=== PATIENT | female | born 1965 | race Caucasian/White ===

== ENCOUNTER 2019-07-08 01:38 | Inpatient (IN) ==
[2019-07-08] MEDS ORDERED: Ondansetron 4 MG/2 ML VIAL IVP ONE (01:46)
[2019-07-08] MEDS ORDERED: 0.9 % Sodium Chloride 1,000 ML IVC ONE ×2 (01:46→03:27)
[2019-07-08] MEDS ORDERED: Ketorolac 30 MG/ML VIAL IVP ONE (01:46)
[2019-07-08 02:35] LABS: VBG HCO3 25 mEq/L (21-27); VBG PCO2 59 mmHg (41-51); VBG PH 7.23 pH Units (7.32-7.42); VBG PO2 33 mmHg (25-50)
[2019-07-08 02:36] LABS: Basophils % 0.2 %; Eosinophils # 0.1 K/mcL (0.0-0.6); Eosinophils % 0.3 %; Hematocrit 38.6 % (35.3-44.9); Hemoglobin 12.6 g/dL (11.5-15.4); Immature Granulocytes % 0.4 % (0-4); Lymphocytes # 2.1 K/mcL (0.6-4.6); Lymphocytes % 10.2 %; Mean Corpuscular HGB Conc 32.6 g/dL (31.6-35.5); Mean Corpuscular Hemoglobin 26.2 pg (28.0-33.3); Mean Corpuscular Volume 80.2 fL (83.0-100.0); Mean Platelet Volume 9.2 fL (9.4-12.4); Monocytes # 0.7 K/mcL (0.0-1.3); Monocytes % 3.5 %; Neutrophils # 17.4 K/mcL (1.6-8.9); Platelet Count 380 K/mcL (140-400); Red Blood Count 4.81 M/mcL (3.82-4.97); Red Cell Distribution Width 13.2 % (11.5-14.5); Segmented Neutrophils % 85.4 %; White Blood Count 20.4 K/mcL (4.3-11.1)
[2019-07-08 02:55] LABS: Albumin 3.5 g/dL (3.5-5.7); Albumin/Globulin Ratio 0.9 (1.1-2.2); Bilirubin,Indirect 0.3 mg/dL (0.0-1.0); Bilirubin,Total 0.3 mg/dL (0.3-1.0); Globulin 3.7 g/dL (2.4-3.5); Total Protein 7.2 g/dL (6.4-8.9)
[2019-07-08 03:16] LABS: Calcium 9.2 mg/dL (8.6-10.3); Potassium 5.5 mEq/L (3.5-5.1)
[2019-07-08] MEDS ORDERED: *HR* Dextrose 50 % in Water (Vial) 50 ML VIAL IVP PRN ×3 (03:33→09:20)
[2019-07-08] MEDS ORDERED: Insulin Human Regular 100 UNIT in 0.9 % Sodium Chloride 100 ML IVC SCH ×2 (03:45→06:03)
[2019-07-08] MEDS ORDERED: 0.9 % Sodium Chloride 1,000 ML IVC SCH ×2 (04:45→06:03)
[2019-07-08 05:45] LABS: Bilirubin,Urine Negative (Negative); Blood,Urine Negative (Negative); Clarity,Urine Clear (Clear); Color,Urine Light Yellow (Yellow); Glucose,Urine (UA) 500 mg/dL (Normal); Ketones,Urine Negative (Negative); Leukocyte Esterase,Urine Negative (Negative); Nitrite,Urine Negative (Negative); Protein,Urine Negative (Neg-Trace); Specific Gravity,Urine <= 1.005 (1.010-1.025); Urobilinogen,Urine Normal (Normal)
[2019-07-08] MEDS ORDERED: Ondansetron 4 MG/2 ML VIAL IVP PRN (06:03)
[2019-07-08] MEDS ORDERED: Naloxone 0.4 MG/ML INJ IVP PRN (06:03)
[2019-07-08] MEDS ORDERED: Tiotropium 18 MCG inhalation IH SCH (07:00)
[2019-07-08 08:28] LABS: Calcium 9.4 mg/dL (8.6-10.3); Potassium 4.1 mEq/L (3.5-5.1)
[2019-07-08] MEDS: Gabapentin 400 MG CAPSULE PO SCH ×3 (08:40→20:21)
[2019-07-08] MEDS: Loratadine 10 MG TABLET PO SCH (08:40)
[2019-07-08] MEDS: Lisinopril 20 MG TABLET PO SCH (08:40)
[2019-07-08] MEDS: BuPROPion XL (24 HR) 150 MG TABLET PO SCH (08:41)
[2019-07-08] MEDS ORDERED: Budesonide/Formoterol 80/4.5 1 PUFF INH IH SCH (09:00)
[2019-07-08] MEDS: Tiotropium 18 MCG inhalation IH SCH (09:18)
[2019-07-08] MEDS: Budesonide/Formoterol 80/4.5 1 PUFF INH IH SCH (09:18)
[2019-07-08] MEDS ORDERED: D5% in Water 1,000 ML IVC PRN (09:20)
[2019-07-08] MEDS ORDERED: Dextrose Gel 15 GM/37.5 ML TUBE PO PRN ×2 (09:20)
[2019-07-08] MEDS: 0.9 % Sodium Chloride 1,000 ML IVC SCH ×2 (12:24→18:39)
[2019-07-08] MEDS: Insulin LISPRO 300 UNITS/3 ML VIAL SQ SCH ×2 (12:27→18:12)
[2019-07-08 22:06] LABS: Estimated Average Glucose 410 mg/dl
[2019-07-09] MEDS: Insulin LISPRO 300 UNITS/3 ML VIAL SQ SCH ×6 (00:20→17:33)
[2019-07-09 08:21] LABS: BUN/Creatinine Ratio 20 (6-26); Blood Urea Nitrogen 18 mg/dL (6-20); Calcium 8.8 mg/dL (8.6-10.3); Carbon Dioxide 21 mEq/L (23-29); Chloride 105 mEq/L (98-107); Glucose 208 mg/dL (70-105); Lipase 229 Units/L (11-82); Osmolality,Calculated 284 (280-300); Sodium 133 mEq/L (136-145); eGFR For African Americans > 60 (> 60); eGFR For Non-African Americans > 60 (> 60)
[2019-07-09] MEDS: BuPROPion XL (24 HR) 150 MG TABLET PO SCH (09:07)
[2019-07-09] MEDS: Loratadine 10 MG TABLET PO SCH (09:07)
[2019-07-09] MEDS: Gabapentin 400 MG CAPSULE PO SCH ×3 (09:07→19:53)
[2019-07-09] MEDS: Lisinopril 20 MG TABLET PO SCH (09:07)
[2019-07-09] MEDS ORDERED: Isovue-370 500 ML BOTTLE IVP ONE (09:32)
[2019-07-09] MEDS ORDERED: D5% in Water 1,000 ML IVC PRN (09:35)
[2019-07-09] MEDS ORDERED: *HR* Dextrose 50 % in Water (Syg) 50 ML SYRINGE IVP PRN (09:35)
[2019-07-09] MEDS ORDERED: Dextrose Gel 15 GM/37.5 ML TUBE PO PRN ×2 (09:35)
[2019-07-09] MEDS ORDERED: Insulin DETEMIR 100 UNIT/ML X5UNITS SQ SCH (09:45)
[2019-07-09] MEDS: 0.9 % Sodium Chloride 1,000 ML IVC SCH (11:35)
[2019-07-09] MEDS: Budesonide/Formoterol 80/4.5 1 PUFF INH IH SCH (11:54)
[2019-07-09] MEDS: Tiotropium 18 MCG inhalation IH SCH (11:54)
[2019-07-09] MEDS ORDERED: *HR* Heparin 5,000 UNIT/ML VIAL IVP PRN ×2 (20:25)
[2019-07-09] MEDS ORDERED: *HR* Heparin 5,000 UNIT/ML VIAL IVP ONE (20:25)
[2019-07-09] MEDS: Heparin 25,000 UNIT/250 ML D5W 25,000 UNIT/250 ML IV.SOLN IVC SCH (21:34)
[2019-07-10] MEDS: 0.9 % Sodium Chloride 1,000 ML IVC SCH (02:07)
[2019-07-10 08:03] VITALS: BP 136/85
[2019-07-10] MEDS: Insulin LISPRO 300 UNITS/3 ML VIAL SQ SCH ×4 (08:16→12:25)
[2019-07-10] MEDS: Lisinopril 20 MG TABLET PO SCH (09:52)
[2019-07-10] MEDS: Loratadine 10 MG TABLET PO SCH (09:52)
[2019-07-10] MEDS: BuPROPion XL (24 HR) 150 MG TABLET PO SCH (09:53)
[2019-07-10] MEDS: Gabapentin 400 MG CAPSULE PO SCH ×2 (09:53→16:14)
[2019-07-10] MEDS: Tiotropium 18 MCG inhalation IH SCH (10:10)
[2019-07-10] MEDS: Budesonide/Formoterol 80/4.5 1 PUFF INH IH SCH (10:10)
[2019-07-10 10:54] LABS: Hematocrit 34.4 % (35.3-44.9); Hemoglobin 11.5 g/dL (11.5-15.4); Mean Corpuscular HGB Conc 33.4 g/dL (31.6-35.5); Mean Corpuscular Hemoglobin 26.1 pg (28.0-33.3); Mean Platelet Volume 9.1 fL (9.4-12.4); Platelet Count 368 K/mcL (140-400); Red Blood Count 4.41 M/mcL (3.82-4.97); Red Cell Distribution Width 13.2 % (11.5-14.5); White Blood Count 9.8 K/mcL (4.3-11.1)
[2019-07-10 11:04] LABS: Alanine Aminotransferase 9 Units/L (7-52); Albumin 3.1 g/dL (3.5-5.7); Alkaline Phosphatase 92 Units/L (34-104); Aspartate Amino Transferase 10 Units/L (13-39); BUN/Creatinine Ratio 11 (6-26); Bilirubin,Total 0.2 mg/dL (0.3-1.0); Blood Urea Nitrogen 10 mg/dL (6-20); Calcium 8.8 mg/dL (8.6-10.3); Carbon Dioxide 25 mEq/L (23-29); Chloride 103 mEq/L (98-107); Globulin 3.2 g/dL (2.4-3.5); Glucose 257 mg/dL (70-105); Lipase 202 Units/L (11-82); Magnesium 1.9 mg/dL (1.6-2.6); Osmolality,Calculated 284 (280-300); Potassium 4.3 mEq/L (3.5-5.1); Sodium 133 mEq/L (136-145); Total Protein 6.3 g/dL (6.4-8.9); eGFR For African Americans > 60 (> 60); eGFR For Non-African Americans > 60 (> 60)
[2019-07-10] MEDS: Heparin 25,000 UNIT/250 ML D5W 25,000 UNIT/250 ML IV.SOLN IVC SCH (12:10)
[2019-07-10] MEDS ORDERED: *HR* OxyCODONE/APAP 5/325 TABLET PO PRN (15:04)
[2019-07-10] MEDS ORDERED: 0.9 % Sodium Chloride 1,000 ML ONE (17:14)
== END 2019-07-10 18:06 | disposition short-term general hospital (02) | DRG 420 ==
LOC: EMEROOPIK 01:38 → INPPIK 01:38 → SUATTDRO 05:20 → INPPIK 05:55
PROVIDERS: ADMIT Emergency Medicine; ATTEND Family Medicine